=== PATIENT | male | born 1965 | race Caucasian/White ===

== ENCOUNTER 2022-12-21 17:50 | Inpatient (IN) ==
[2022-12-21 20:26] LABS: Urine Appearance Clear; Urine Bilirubin Negative (Negative); Urine Blood Negative (Negative); Urine Color Straw; Urine Glucose 1+(50 mg/dL) (Negative); Urine Ketones Negative (Negative); Urine Nitrite Negative (Negative); Urine Protein Negative (Negative); Urine Specific Gravity 1.008 (1.002-1.030); Urine Urobilinogen Negative (Negative)
[2022-12-21 20:41] LABS: Urine Benzodiazepine Screen None Detected (None Detect); Urine Cannabinoids Screen None Detected (None Detect); Urine Opiates Screen None Detected (None Detect)
[2022-12-21 21:11] LABS: ALT 31 U/L (7-52); AST 20 U/L (13-39); Acetaminophen < 15 mcg/mL; Albumin 4.7 g/dL (3.2-5.2); Albumin/Globulin Ratio 1.9 (1-3); Alcohol, S < 13 mg/dL (<13); Alkaline Phosphatase 84 U/L (35-149); Anion Gap 9 mmol/L (2-16); Blood Urea Nitrogen 18 mg/dL (6-24); CO2 Carbon Dioxide 24 mmol/L (22-32); Calcium 9.2 mg/dL (8.6-10.3); Chloride 103 mmol/L (101-111); Creatinine, Serum 0.84 mg/dL (0.67-1.17); Globulin 2.5 g/dL (2-4); Glucose 127 mg/dL (70-100); Potassium 4.3 mmol/L (3.5-5.0); Salicylate < 2.50 mg/dL (<30); Sodium 136 mmol/L (135-145); Total Protein 7.2 g/dL (6.4-8.9); eGFR CKD-EPI 101.1 (>60)
[2022-12-21 21:25] LABS: TSH Ultra Thyroid Stim Horm 2.05 mcIU/mL (0.34-5.60)
[2022-12-21 21:32] LABS: ABS Eosinophils 0.3 10^3/uL (0.0-0.5); ABS Lymphocytes 1.3 10^3/uL (1.0-4.8); ABS Monocytes 0.8 10^3/uL (0.0-1.1); ABS Neutrophils 6.1 10^3/uL (1.5-7.6); ABS Nucleated RBC 0.01 10^3/ul; Eosinophil % 3.8 %; Hematocrit 43.5 % (38-53); Hemoglobin 15.1 g/dL (13.2-16.3); Lymphocyte % 14.9 %; Mean Corpuscular Hemoglobin 32.1 pg (27-33); Mean Corpuscular Hgb Conc 34.8 g/dL (31-36); Mean Corpuscular Volume 92.3 fL (80-97); Mean Platelet Volume 7.3 fL (7.5-11.2); Nucleated Red Blood Cells % 0.1 /100 WBC (0.0-0.4); Platelet Count 198 10^3/uL (150-450); Red Blood Count 4.71 10^6/uL (4.06-5.63); Red Cell Distribution Width 13.2 % (12-17); White Blood Count 8.5 10^3/uL (3.6-10.2)
[2022-12-22] MEDS ORDERED: Al Hydrox/Mg Hydrox/Simet LIQ 30 ML UDC PO PRN (00:51)
[2022-12-22] MEDS: Vitamin THERAPEUTIC TAB PO SCH (08:21)
[2022-12-22 08:57] LABS: HDL Cholesterol 36.5 mg/dL
[2022-12-23] MEDS: Vitamin THERAPEUTIC TAB PO SCH (08:48)
[2022-12-24] MEDS: Vitamin THERAPEUTIC TAB PO SCH (08:44)
[2022-12-25] MEDS: Vitamin THERAPEUTIC TAB PO SCH (08:59)
[2022-12-26] MEDS: Vitamin THERAPEUTIC TAB PO SCH (08:37)
[2022-12-27] MEDS: Vitamin THERAPEUTIC TAB PO SCH (08:35)
[2022-12-28] MEDS: Vitamin THERAPEUTIC TAB PO SCH (08:36)
[2022-12-28] MEDS: Senna TAB 8.6 mg TAB PO SCH (14:00)
[2022-12-29 07:08] VITALS: BP 136/81
[2022-12-29] MEDS: Vitamin THERAPEUTIC TAB PO SCH (08:24)
[2022-12-29] MEDS: Senna TAB 8.6 mg TAB PO SCH (08:25)
== END 2022-12-29 13:00 | disposition home or self-care (01) | DRG 753 ==
LOC: ED 17:50 → EDHOLD 22:35 → BSU 23:32
PROVIDERS: ADMIT Psychiatry & Neurology Psychiatry; ATTEND Psychiatry & Neurology Psychiatry